=== PATIENT | female | born 1995 | race Caucasian/White ===

== ENCOUNTER 2018-04-22 23:23 | Outpatient (CLI) | payer MEDICAID ==
[~2018-04-22] VITALS: Ht 144.8 cm; Wt 91.6 kg
--- NOTE | 2018-04-22 23:12 | NUR ---
FIORELLA GEORGE presented to unit via ems stretcher from ED, accompanied by [facility] ems staff, with c/o CONTRACTIONS. FIORELLA GEORGE gowned, voided, and to bed. EFHM and TOCO applied, VS taken. FIORELLA GEORGE oriented to bed controls, call light, TV, heat, and A/C controls. Assessments to follow per JACKSON HEWITT.
[2018-04-22 23:20] VITALS: BP 130/59
[~2018-04-22 23:23] MED LIST: FAMO20TA3 PO; FAMO20TA5 PO; FERR-84 PO; PREN1TAB86 PO
[2018-04-22] MEDS ORDERED: MAGN400T50 PO (23:34)
[2018-04-22 23:38] LABS: BILIRUBIN,URINE NEGATIVE (NEGATIVE); CLARITY,URINE CLEAR; COLOR,URINE YELLOW; GLUCOSE, URINE (UA) NEGATIVE (NEGATIVE); KETONES,URINE NEGATIVE (NEGATIVE); LEUKOCYTE ESTERASE ,URINE 2+ (NEGATIVE); NITRITE,URINE NEGATIVE (NEGATIVE); PH,URINE 8 (5-9); PROTEIN,URINE NEGATIVE (NEGATIVE); UROBILINOGEN,URINE NORMAL (NORMAL)
--- NOTE | 2018-04-22 23:51 | NUR ---
s.o. here at bedside.
[2018-04-22 23:55] LABS: BACTERIA,URINE TRACE /HPF; WBC,URINE 0-2 /HPF
--- NOTE | 2018-04-23 01:38 | NUR ---
Pt ambulated off unit with s.o. to private auto.
--- NOTE | 2018-04-24 13:30 | Physician Query-Final Dx ---
FLAVIO SANTIAGO 04/24/18 1330: Clinic Account Progress/Dx Physician Query: Please give diagnosis Date of Service Apr 22, 2018 at 23:23 REBECCA MCKEON MD 04/24/187: Clinic Account Progress/Dx DIAGNOSIS: Diagnosis Contractions without active labor 37 weeks gestation FLAVIO SANTIAGO Apr 24, 2018 13:30 REBECCA MCKEON MD Apr 24, 2018 21:27
== END 2018-04-23 01:38 | disposition home or self-care (01) ==
LOC: WSo 23:23 → LDRP 23:25 → WSo 04-23 01:38
PROVIDERS: ATTEND Family Medicine
DX: O47.1 False labor at or after 37 completed weeks of gestation (principal); Z3A.37 37 weeks gestation of pregnancy
CPT/HCPCS: 81000; 99213

== ENCOUNTER 2018-04-26 19:09 | Inpatient (IN) | payer MEDICAID ==
[~2018-04-26] VITALS: Ht 144.8 cm; Wt 90.7 kg
[~2018-04-26 19:09] MED LIST changes: +MAGN400T50 PO
--- NOTE | 2018-04-26 19:15 | NUR ---
FIORELLA GEORGE presented to unit via W/C from ED, accompanied by SO, with c/o CONTRACTIONS. FIORELLA GEORGE weighed, gowned, voided, and to bed. EFHM and TOCO applied, VS taken. FIORELLA GEORGE oriented to bed controls, call light, TV, heat, and A/C controls.
[2018-04-26 19:25] VITALS: BP 109/6
[2018-04-26 19:58] LABS: BILIRUBIN,URINE NEGATIVE (NEGATIVE); CLARITY,URINE CLEAR; COLOR,URINE YELLOW; GLUCOSE, URINE (UA) NEGATIVE (NEGATIVE); KETONES,URINE NEGATIVE (NEGATIVE); LEUKOCYTE ESTERASE ,URINE NEGATIVE (NEGATIVE); NITRITE,URINE NEGATIVE (NEGATIVE); PH,URINE 7 (5-9); PROTEIN,URINE NEGATIVE (NEGATIVE); UROBILINOGEN,URINE NORMAL (NORMAL)
[2018-04-26 20:17] LABS: BACTERIA,URINE TRACE /HPF; SQUAMOUS EPITHELIAL CELL,UR 0-2 /HPF
[2018-04-26 21:06] LABS: BASOPHILS % (AUTO) 0 % (0-10); EOSINOPHILS # (AUTO) 0.1 10^3/uL (0.0-0.3); EOSINOPHILS % (AUTO) 1 % (0-10); HEMATOCRIT 36 % (35-52); HEMOGLOBIN 11.8 G/DL (11.5-16.0); LYMPHOCYTES # (AUTO) 1.8 X 10^3 (1.0-4.0); LYMPHOCYTES % (AUTO) 16 % (12-44); MEAN CORPUSCULAR HEMOGLOBIN 28 PG (25-34); MEAN CORPUSCULAR HGB CONC 33 G/DL (32-36); MEAN CORPUSCULAR VOLUME 84 FL (80-99); MEAN PLATELET VOLUME 9.2 FL (7.4-10.4); MONOCYTES # (AUTO) 0.6 X 10^3 (0.0-1.0); MONOCYTES % (AUTO) 6 % (0-12); NEUTROPHILS # (AUTO) 8.9 X 10^3 (1.8-7.8); NEUTROPHILS % (AUTO) 78 % (42-75); PLATELET COUNT 344 10^3/uL (130-400); RED CELL DISTRIBUTION WIDTH 13.6 % (10.0-14.5); WHITE BLOOD COUNT 11.4 10^3/uL (4.3-11.0)
[2018-04-26 23:30] VITALS: BP 112/59
[2018-04-27] VITALS (18 sets, daily range): BP systolic 104–132; BP diastolic 46–73
[2018-04-27] MEDS ORDERED: D5 LR IV SOLUTION 1,000 ML IV SCH (09:14)
[2018-04-27] MEDS ORDERED: LIDOCAINE/EPI 2% 1:200,00 (XYLOCAINE) 10 ML VIAL ONE (09:15)
[2018-04-27] MEDS ORDERED: OXYTOCIN/NORMAL SALINE 500 ML IV ONE (09:15)
[2018-04-27] MEDS ORDERED: MINERAL OIL CONCENTRATE 99.9% 15 ML UDC ONE (09:15)
[2018-04-27] MEDS ORDERED: D5 LR IV SOLUTION 1,000 ML IV ONE (09:15)
--- NOTE | 2018-04-27 09:20 | History & Physical-OB ---
OB - Chief Complaint & HPI Date/Time Date of Admission: Date of Admission: 04/27/18 Date seen by a Provider: Apr 27, 2018 Time Seen by a Provider: 09:14 Chief Complaint/History OB-Reason for Admission/Chief: Onset of Labor Hx : 4 Hx Para: 3 Expected Date of Delivery: May 09, 2018 Gestational Age in Weeks: 38 Gestational Age in Days: 2 Other reason for admission: Pt has been having contractions intermittently for the past 1-2 days. At times intensity and frequency increases significantly. Was seen by Dr. Kay in the office Thurs and found to be 5cm dilated. Pt presents to L&D at this time with increase frequency and intensity of contractions. Contractions have spaced out over night and pt is currently 5cm/80%/-1 head well engaged. Admission Nurse Assessment Rev: Yes History of Labs A+, antibody screen neg HIV, HepB/C, RPR neg Rubella/Varicella Immune GC/Chl neg/neg QNatal normal; female GBS neg Allergies and Home Medications Allergies Coded Allergies: ibuprofen (Verified Allergy, Severe, ANAPHYLAXIS, 04/22/18) PT STATES MOM TOLD HER IT MADE HER MOUTH SWELL AT AGE 6 Latex, Natural Rubber (Verified Allergy, Unknown, 04/22/18) latex (Verified Allergy, Unknown, 04/22/18) Home Medications Ferrous Sulfate 325 Mg Tablet, 325 MG PO DAILY, (Reported) Magnesium Oxide 400 Mg Tablet, 400 MG PO DAILY, (Reported) Vit W-Ca,Fe,FA(<1 mg) 1 Each Tablet, 1 EACH PO DAILY, (Reported) Patient Home Medication List Home Medication List Reviewed: Yes OB - History Hx of Present Care: Yes Ultrasounds: Normal mid trimester US Obstetrical Complications: None Medical Complications: None Information Induced Hypertension: No Maternal Gestational Diabetes: No Hemorrhage: No Obstetrical History Hx : 4 Hx Para: 3 Hx Termination: No Hx Multiple Gestation: No Hx Ectopic : No Hx Stillbirth: No Hx Complication: No Hx Induced Hypertens: No Hx Maternal Gestational Diabet: No Hx Hemorrhage: No Delivery History Hx Dystocia: No Hx Forceps Assisted Delivery: No Hx Vacuum Extraction Assisted: No Hx Placenta Abnormality: No Hx Distress: No Hx Large For Gestational Age I: No Hx Small for Gestational Age I: No Hx Section: No Hx Vaginal Delivery Post C-Sec: No Hx Blood Disorders: No Adverse Rxn to Tranfusion: No Patient Past Medical History PMHx: Kidney stones depression/anxiety Asthma - does not require tx Social History/Family History HIV/AIDS: No Recent Infectious Disease Expo: No Sexually Transmitted Disease: No Alcohol Use: Denies Use Recreational Drug Use: No Immunizations Hepatitis A: Yes Hepatitis B: Yes Tetanus Booster (TDap): Less than 5yrs Date of Influenza Vaccine: Oct 30, 2017 Rubella: immune RPR/VDRL: Negative GBS Status: Negative HBsAG: Negative OB - Admission Exam Physical Exam Vitals: Vital Signs 04/27/18 04:00 Temp 98.6 Pulse 120 Resp 20 B/P (MAP) 104/55 (71) O2 Delivery Room Air Abdomen: Gravid Cervical Dilatation: 5cm Effacement: Other (80%) Station: -1 Membranes: Intact Heart Rate: 150's Accelerations: Accelerations Present Decelerations: No Decelerations Short Term Variability: Present Swimming Pool Installer And Servicer Variability: Average (6-25) Contractions on Admission: 6-10 Minutes Apart Intensity: Mild Labs Laboratory Tests Test 04/26/18 19:35 04/26/18 20:40 Range/Units Urine Color YELLOW Urine Clarity CLEAR Urine pH 7 5-9 Urine Specific [place] 1.005 L 1.016-1.022 Urine Protein NEGATIVE NEGATIVE Urine Glucose (UA) NEGATIVE NEGATIVE Urine Ketones NEGATIVE NEGATIVE Urine Nitrite NEGATIVE NEGATIVE Urine Bilirubin NEGATIVE NEGATIVE Urine Urobilinogen NORMAL NORMAL MG/DL Urine Leukocyte Esterase NEGATIVE NEGATIVE Urine RBC (Auto) NEGATIVE NEGATIVE Urine RBC NONE /HPF Urine WBC NONE /HPF Urine Squamous Epithelial Cells 0-2 /HPF Urine Crystals NONE /LPF Urine Bacteria TRACE /HPF Urine Casts NONE /LPF Urine Mucus NEGATIVE /LPF Urine Culture Indicated NO White Blood Count 11.4 H 4.3-11.0 10^3/uL Red Blood Count 4.26 L 4.35-5.85 10^6/uL Hemoglobin 11.8 11.5-16.0 G/DL Hematocrit 36 35-52 % Mean Corpuscular Volume 84 80-99 FL Mean Corpuscular Hemoglobin 28 25-34 PG Mean Corpuscular Hemoglobin Concent 33 32-36 G/DL Red Cell Distribution Width 13.6 10.0-14.5 % Platelet Count 344 130-400 10^3/uL Mean Platelet Volume 9.2 7.4-10.4 FL Neutrophils (%) (Auto) 78 H 42-75 % Lymphocytes (%) (Auto) 16 12-44 % Monocytes (%) (Auto) 6 0-12 % Eosinophils (%) (Auto) 1 0-10 % Basophils (%) (Auto) 0 0-10 % Neutrophils # (Auto) 8.9 H 1.8-7.8 X 10^3 Lymphocytes # (Auto) 1.8 1.0-4.0 X 10^3 Monocytes # (Auto) 0.6 0.0-1.0 X 10^3 Eosinophils # (Auto) 0.1 0.0-0.3 10^3/uL Basophils # (Auto) 0.0 0.0-0.1 10^3/uL OB - Assessment/Plan/Diagnosis Assessment Assessment: other Admission Dx at 38w2d Prolonged latent phase of labor with advanced cervical dilation and history of rapid delivery Admission Status: Inpatient Order (span 2 midnights) Reason for Inpatient Admission: labor and delivery Plan Plan: Other (Augmentation with AROM) Induction Method: AROM Copy Copies To 1: REBECCA KAY MD, LINDA K DO Apr 27, 2018 09:20
[2018-04-27] MEDS ORDERED: OXYTOCIN/NORMAL SALINE 500 ML IV SCH ×2 (10:28→15:20)
[2018-04-27] MEDS ORDERED: LIDOCAINE/EPI 2% 1:200,00 (XYLOCAINE) 10 ML VIAL INJ ONE (10:30)
[2018-04-27] MEDS ORDERED: MINERAL OIL CONCENTRATE 99.9% 15 ML UDC PO ONE (10:30)
--- NOTE | 2018-04-27 13:55 | OB Labor & Delivery Record ---
Vag Delivery Note Vag Delivery Note Date of Delivery: 04/27/18 Preoperative Diagnosis: Yris Rose is a (22 /Para 4 / 3,Gestational Age (wks)382d Postoperative Diagnosis: Same Surgeon: KALE JANG Vacuum Filter Operator: [] Anesthesia: none Delivery Type: spontaneous vaginal Findings: Viable female , apgars 8/9, weight 6#7 Lacerations: none Intact placenta with 3 vessel cord. No nuchal cord, body cord or shoulder dystocia Estimated Blood Loss: 100 ml Complications: None Condition: Stable Description of Procedure: The patient is a 22 year old female who presented with contractions and was 5 cm dilated. She was admitted and informed consent was obtained. Her labor course was remarkable for augmentation with AROM and pitocin. She progressed to complete dilatation and began to push. She was then set up for delivery. The 's head was delivered atraumatically in the MINI position. The shoulders and remainder of the infant's body were then delivered without difficulty. Upon delivery, the head was held below the level of the perineum and the mouth and nares were bulb suctioned. The was placed on the maternal abdomen and was vigorous at . The cord was doubly clamped and cut after there was cessation of pulsations. An intact placenta with 3-vessel cord delivered via Leah and there was found to be minimal bleeding.~100mL. Vigorous fundal massage was performed and the fundus was found to be firm. IV oxytocin was given. Examination of the vagina and perineum revealed no lacerations. Following the repair, sponge, instrument and needle counts were correct. Mom and baby were both in stable condition in the labor suite. Vitals - Labs Vital Signs - I&O Vital Signs Date Time Temp Pulse Resp B/P (MAP) Pulse Ox O2 Delivery O2 Flow Rate FiO2 04/27/18 04:00 98.6 120 20 104/55 (71) Room Air 04/26/18 23:30 98.4 116 20 112/59 (76) Room Air 04/26/18 19:25 98.5 112 20 109/6 (40) Room Air Labs Laboratory Tests 04/26/18 19:35: Urine Color YELLOW, Urine Clarity CLEAR, Urine pH 7, Urine Specific [place] 1.005L, Urine Protein NEGATIVE, Urine Glucose (UA) NEGATIVE, Urine Ketones NEGATIVE, Urine Nitrite NEGATIVE, Urine Bilirubin NEGATIVE, Urine Urobilinogen NORMAL, Urine Leukocyte Esterase NEGATIVE, Urine RBC (Auto) NEGATIVE, Urine RBC NONE, Urine WBC NONE, Urine Squamous Epithelial Cells 0-2, Urine Crystals NONE, Urine Bacteria TRACE, Urine Casts NONE, Urine Mucus NEGATIVE, Urine Culture Indicated NO 04/26/18 20:40: White Blood Count 11.4H, Red Blood Count 4.26L, Hemoglobin 11.8, Hematocrit 36, Mean Corpuscular Volume 84, Mean Corpuscular Hemoglobin 28, Mean Corpuscular Hemoglobin Concent 33, Red Cell Distribution Width 13.6, Platelet Count 344, Mean Platelet Volume 9.2, Neutrophils (%) (Auto) 78H, Lymphocytes (%) (Auto) 16 , Monocytes (%) (Auto) 6, Eosinophils (%) (Auto) 1, Basophils (%) (Auto) 0, Neutrophils # (Auto) 8.9H, Lymphocytes # (Auto) 1.8, Monocytes # (Auto) 0.6, Eosinophils # (Auto) 0.1, Basophils # (Auto) 0.0 KALE JANG DO Apr 27, 2018 13:55
[2018-04-27] MEDS ORDERED: CATHETER FLUSH 10 ML SYR IV SCH ×2 (14:00→22:00)
[2018-04-27] MEDS ORDERED: ACETAMINOPHEN 500 MG TAB (TYLENOL) ONE (14:02)
[2018-04-27] MEDS: ACETAMINOPHEN 325 MG TABLET PO PRN ×2 (14:04→22:29)
--- NOTE | 2018-04-27 14:30 | NUR ---
2ND BAG PITOCIN STARTED PER ORDER, FFU/2 LT/MOD LOCHIA NOTED, IN MOTHERS ARMS.
[2018-04-27] MEDS ORDERED: WITCH HAZEL(TUCKS) 40 EA JAR TOP PRN (15:30)
[2018-04-27] MEDS ORDERED: BENZOCAINE/MENTHOL (DERMOPLAST) 56 ML CAN TP PRN (15:30)
--- NOTE | 2018-04-27 16:00 | NUR ---
PT AMBULATED TO BR WITH RN ASSISTANCE, VOIDED WITHOUT DIFFICULTY, PERICARE COMPLETED, TRANSFERRED BY WC TO PP ROOM FOR CONTINUED PP CARE, EXPLAINED PLAN OF CARE NO QUESTIONS OR CONCERN NOTED, AND S/O AT BEDSIDE, INFO PAPERS EXPLAINED TO PT/SO, PT VERBALIZES UNDERSTANDING
[2018-04-27] MEDS ORDERED: PHENAZOPYRIDINE 100 MG (PYRIDIUM) TABLET PO ONE (18:45)
--- NOTE | 2018-04-27 20:17 | NUR ---
Infant returned to mother and mother educated on feed on demand. Mother also advised to fill out feeding record. mother receptive to teaching.
[2018-04-28] VITALS: BP 100/62
[2018-04-28 04:43] VITALS: BP 99/60
[2018-04-28 05:48] LABS: BASOPHILS % (AUTO) 0 % (0-10); EOSINOPHILS % (AUTO) 0 % (0-10); HEMATOCRIT 31 % (35-52); HEMOGLOBIN 10.1 G/DL (11.5-16.0); LYMPHOCYTES # (AUTO) 1.1 X 10^3 (1.0-4.0); LYMPHOCYTES % (AUTO) 14 % (12-44); MEAN CORPUSCULAR HEMOGLOBIN 28 PG (25-34); MEAN CORPUSCULAR HGB CONC 33 G/DL (32-36); MEAN CORPUSCULAR VOLUME 85 FL (80-99); MEAN PLATELET VOLUME 9.2 FL (7.4-10.4); MONOCYTES # (AUTO) 0.9 X 10^3 (0.0-1.0); MONOCYTES % (AUTO) 12 % (0-12); NEUTROPHILS % (AUTO) 74 % (42-75); PLATELET COUNT 265 10^3/uL (130-400); RED CELL DISTRIBUTION WIDTH 13.5 % (10.0-14.5); WHITE BLOOD COUNT 8.1 10^3/uL (4.3-11.0)
[2018-04-28] MEDS ORDERED: PRENATAL VITAMIN 1 EA TAB PO SCH (07:00)
[2018-04-28 08:52] VITALS: BP 112/68
[2018-04-28] MEDS: ACETAMINOPHEN 325 MG TABLET PO PRN (08:54)
[2018-04-28] MEDS ORDERED: ACET325T49 PO (09:13)
--- NOTE | 2018-04-28 09:15 | Discharge Instructions ---
Discharge Inst-Women's Serv Depart Medications New, Converted or Re-Newed RX: Other (over the counter) New Medications: Acetaminophen (Acetaminophen) 325 Mg Tablet 650 MG PO Q4H PRN for PAIN-MILD, #90 TAB 0 Refills Continued Medications: Vit W-Ca,Fe,FA(<1 mg) ( Vitamins) 1 Each Tablet 1 EACH PO DAILY, TAB Discontinued Medications: Ferrous Sulfate (Iron) 325 Mg Tablet 325 MG PO DAILY, TAB Magnesium Oxide (Magnesium Oxide) 400 Mg Tablet 400 MG PO DAILY, TAB Follow Up/Instructions Goal/Follow Up: Follow-up with Dr. Kay in 6wk Activity Activity: Activity as Tolerated Nothing Inside Vagina: No Douching, No [place], No Tampons Diet Discharge Diet: No Restrictions Symptoms to Report to : Bleeding Excessive, Pain Increased, Fever Over 101 Degrees F, Vaginal Bleeding Increase, Vaginal Discharge Foul, Questions/Concerns , Shortness of Breath For Any Problems or Questions: Contact Your Physician KALE JANG DO Apr 28, 2018 09:15
--- NOTE | 2018-04-28 09:19 | Discharge Summary ---
Diagnosis/Chief Complaint Date of Admission Apr 27, 2018 at 09:14 Date of Discharge Apr 28, 2018 Admission Diagnosis Admission Diagnosis at 38w2d Prolonged latent phase of labor with advanced cervical dilation and history of rapid delivery Discharge Diagnosis at 38w2d s/p on 04/27/18 Discharge Summary-OBS Procedures None. Discharge Physical Examination Allergies: Coded Allergies: ibuprofen (Verified Allergy, Severe, ANAPHYLAXIS, 04/22/18) PT STATES MOM TOLD HER IT MADE HER MOUTH SWELL AT AGE 6 Latex, Natural Rubber (Verified Allergy, Unknown, 04/22/18) latex (Verified Allergy, Unknown, 04/22/18) Vitals & I&Os Intake and Output 04/28/18 00:00 Intake Total 500 ml Balance 500 ml Vital Sign - Last 12Hours Date Time Temp Pulse Resp B/P (MAP) Pulse Ox O2 Delivery O2 Flow Rate FiO2 04/28/18 08:52 99.0 107 18 112/68 (83) 97 Room Air General Appearance: Alert, Oriented X3, Cooperative Psych/Mental Status: Mood NL Hospital Course Routine course. Labs Laboratory Tests 04/28/18 05:38: White Blood Count 8.1, Red Blood Count 3.62L, Hemoglobin 10.1L, Hematocrit 31L, Mean Corpuscular Volume 85, Mean Corpuscular Hemoglobin 28, Mean Corpuscular Hemoglobin Concent 33, Red Cell Distribution Width 13.5, Platelet Count 265, Mean Platelet Volume 9.2, Neutrophils (%) (Auto) 74, Lymphocytes (%) (Auto) 14, Monocytes (%) (Auto) 12, Eosinophils (%) (Auto) 0, Basophils (%) (Auto) 0, Neutrophils # (Auto) 6.0, Lymphocytes # (Auto) 1.1, Monocytes # (Auto) 0.9, Eosinophils # (Auto) 0.0, Basophils # (Auto) 0.0 Discharge Instructions to patient/family Please see electronic discharge instructions given to patient. Discharge Medications Reviewed and agree with Discharge Medication list on patient's Discharge Instruction sheet Clinical Quality Measures DVT/VTE Risk/Contraindication: Risk Factor Score Per Nursin RFS Level Per Nursing on Admit: 1=Low/No VTE PPX KALE JANG DO Apr 28, 2018 09:19
--- NOTE | 2018-04-28 09:20 | NUR ---
Dr Bobby to room to see pt.
--- NOTE | 2018-04-28 11:00 | NUR ---
Pt S.O. reports trying to find transportation upon pending discharge as their planned ride has become ill. sheet metal supervisor called and inquired about resources - both taxi services and gas cards available. Information relayed to pt.
--- NOTE | 2018-04-28 15:25 | NUR ---
Discharge instructions explained to pt with copy provided to pt. Pt notified of script available at [facility] in [place], breast pump script provided. Pt verbalizes understanding of teaching, signs to verify. Gas card provided per S.O. request. No further needs or concerns voiced at this time.
--- NOTE | 2018-04-28 15:50 | NUR ---
Pt taken off unit via wheelchair accompanied by Luciana RN and . To private vehicle. All persoal belongings with pt. No s/s of distress noted.
== END 2018-04-28 15:50 | disposition home or self-care (01) | DRG 807 ==
LOC: WSo 19:09 → LDRP 19:09 → WSo 04-27 09:14 → LDRP 04-27 09:14
PROVIDERS: ADMIT Family Medicine; ATTEND Family Medicine
PROC: 10E0XZZ Delivery of Products of Conception, External Approach (ICD-10-PCS; principal; 2018-04-27)
DX: O62.0 Primary inadequate contractions (principal); Z3A.38 38 weeks gestation of pregnancy; Z37.0 Single live birth
CPT/HCPCS: 36415; 81000; 85025; 86850; 86900; 86901; 99212

== ENCOUNTER 2020-04-30 11:26 | Outpatient (CLI) | payer MEDICAID ==
[~2020-04-30] VITALS: Ht 63 cm; Wt 100.2 kg
[~2020-04-30 11:26] MED LIST changes: +ACET325T49 PO
[2020-04-30 12:16] VITALS: BP 109/64
[2020-04-30 12:20] VITALS: BP 109/64
[2020-04-30 13:00] VITALS: BP 109/64
--- NOTE | 2020-05-03 08:19 | Physician Query-Final Dx ---
CHARISSE WOODARD 05/03/20 0819: Clinic Account Progress/Dx Physician Query: Please give diagnosis Please include # weeks gestation Date of Service Apr 30, 2020 at 11:26 REBECCA MCKEON MD 05/03/20 1242: Clinic Account Progress/Dx DIAGNOSIS: Diagnosis Leaking fluid Third trimester 37 weeks gestation CHARISSE WOODARD May 03, 2020 08:19 REBECCA MCKEON MD May 03, 2020 12:42
== END 2020-04-30 13:05 | disposition home or self-care (01) ==
LOC: WSo 11:26 → LDRP 11:27 → WSo 13:05
PROVIDERS: ATTEND Family Medicine
DX: O42.92 Full-term premature rupture of membranes, unspecified as to length of time between rupture and onset of labor (principal); Z3A.37 37 weeks gestation of pregnancy
CPT/HCPCS: 99214

== ENCOUNTER 2020-05-10 05:45 | Inpatient (IN) | payer MEDICAID ==
[~2020-05-10] VITALS: Ht 146 cm; Wt 102.0 kg
[2020-05-10] VITALS (21 sets, daily range): BP systolic 103–139; BP diastolic 55–80
[2020-05-10] MEDS ORDERED: CATHETER FLUSH 10 ML SYR IV SCH ×2 (06:00→14:30)
[2020-05-10] MEDS ORDERED: D5 LR IV SOLUTION 1,000 ML IV SCH (06:00)
[2020-05-10] MEDS ORDERED: MINERAL OIL CONCENTRATE 99.9% 15 ML UDC TOP PRN (06:00)
[2020-05-10 07:47] LABS: BASOPHILS % (AUTO) 0 % (0-10); EOSINOPHILS # (AUTO) 0.1 10^3/uL (0.0-0.3); EOSINOPHILS % (AUTO) 1 % (0-10); HEMATOCRIT 35 % (35-52); HEMOGLOBIN 11.1 g/dL (11.5-16.0); LYMPHOCYTES # (AUTO) 2.1 10^3/uL (1.0-4.0); LYMPHOCYTES % (AUTO) 23 % (12-44); MEAN CORPUSCULAR HEMOGLOBIN 27 pg (25-34); MEAN CORPUSCULAR HGB CONC 32 g/dL (32-36); MEAN CORPUSCULAR VOLUME 85 fL (80-99); MEAN PLATELET VOLUME 9.9 fL (9.0-12.2); MONOCYTES # (AUTO) 0.5 10^3/uL (0.0-1.0); MONOCYTES % (AUTO) 6 % (0-12); NEUTROPHILS # (AUTO) 6.2 10^3/uL (1.8-7.8); NEUTROPHILS % (AUTO) 69 % (42-75); PLATELET COUNT 291 10^3/uL (130-400); WHITE BLOOD COUNT 8.9 10^3/uL (4.3-11.0)
[2020-05-10] MEDS ORDERED: FERR-84 PO (08:00)
--- NOTE | 2020-05-10 08:45 | History & Physical-OB ---
OB - Chief Complaint & HPI Date/Time Date of Admission: Date of Admission: May 10, 2020 at 5:45 am Date seen by a Provider: May 10, 2020 Time Seen by a Provider: 08:40 Chief Complaint/History OB-Reason for Admission/Chief: Induction of Labor Hx : 5 Hx Para: 4 Expected Date of Delivery: May 15, 2020 Gestational Age in Weeks: 39 Gestational Age in Days: 2 Indication for induction: maternal discomfort History of Labs A+, antibody neg, RNI. HIV/HepB/RPR NR. GC/chlamydia neg. GBS neg. Allergies and Home Medications Allergies Coded Allergies: ibuprofen (Verified Allergy, Severe, ANAPHYLAXIS, 04/22/18) PT STATES MOM TOLD HER IT MADE HER MOUTH SWELL AT AGE 6 Latex, Natural Rubber (Verified Allergy, Unknown, 04/22/18) latex (Verified Allergy, Unknown, 04/22/18) Home Medications Acetaminophen 325 Mg Tablet, 650 MG PO Q4H PRN for PAIN-MILD Prescribed by: KALE JANG on 04/28/18 0913 Ferrous Sulfate 325 Mg Tablet, 325 MG PO DAILY, (Reported) Vit W-Ca,Fe,FA(<1 mg) 1 Each Tablet, 1 EACH PO DAILY, (Reported) Patient Home Medication List Home Medication List Reviewed: Yes OB - History Hx of Present Care: Yes Ultrasounds: Normal mid trimester US Obstetrical Complications: None Medical Complications: None Information Induced Hypertension: No Maternal Gestational Diabetes: No Hemorrhage: No Obstetrical History Hx : 5 Hx Para: 4 Hx # Term Pregnancies: 4 Hx # Pregnancies: 0 Number of Living Children: 4 Hx Termination: No Hx Multiple Gestation: No Hx Ectopic : No Hx Stillbirth: No Hx Complication: No Hx Induced Hypertens: No Hx Maternal Gestational Diabet: No Hx Hemorrhage: No Delivery History Hx Dystocia: No Hx Forceps Assisted Delivery: No Hx Vacuum Extraction Assisted: No Hx Placenta Abnormality: No Hx Distress: No Hx Large For Gestational Age I: No Hx Small for Gestational Age I: No Hx Section: No Hx Vaginal Delivery Post C-Sec: No Hx Blood Disorders: No Adverse Rxn to Tranfusion: No Patient Past Medical History PMHx: Kidney stones depression/anxiety Asthma - does not require tx Social History/Family History Alcohol Use: Denies Use Recreational Drug Use: No Smoking Cessation: Never smoker 2nd Hand Smoke Exposure: No Immunizations Hepatitis A: Yes Hepatitis B: Yes Tetanus Booster (TDap): Less than 5yrs Date of Influenza Vaccine: Dec 12, 2019 Rubella: not immune RPR/VDRL: Negative GBS Status: Negative HBsAG: Negative OB - Admission Exam Physical Exam Vitals: Vital Signs 05/10/20 07:25 Temp 36.7 Pulse 91 Resp 18 Pulse Ox 99 O2 Delivery Room Air HEENT: NCAT Abdomen: Non tender Extremities: Edema (trace) Cervical Dilatation: 5cm Effacement: 50% Station: -3 Membranes: Ruptured (AROM at time of exam) Amniotic Fluid: Clear Heart Rate: 140's Accelerations: Accelerations Present Decelerations: No Decelerations Short Term Variability: Present Drop Wirer Variability: Average (6-25) Contractions on Admission: None Spencer Scoring Tool (Modified) Dilation (cm): >5cm (3) Effacement (%): 31-51% (1) Descent/Station: -3 (0) Cervix Consistency: Soft (2) Cervix Position: Anterior (2) Add 1 point for: Each previous vaginal delivery (1) (4) Spencer Score: 12 Labs Laboratory Tests Test 05/10/20 07:36 Range/Units White Blood Count 8.9 4.3-11.0 10^3/uL Red Blood Count 4.09 3.80-5.11 10^6/uL Hemoglobin 11.1 L 11.5-16.0 g/dL Hematocrit 35 35-52 % Mean Corpuscular Volume 85 80-99 fL Mean Corpuscular Hemoglobin 27 25-34 pg Mean Corpuscular Hemoglobin Concent 32 32-36 g/dL Red Cell Distribution Width 13.9 10.0-14.5 % Platelet Count 291 130-400 10^3/uL Mean Platelet Volume 9.9 9.0-12.2 fL Immature Granulocyte % (Auto) 0 % Neutrophils (%) (Auto) 69 42-75 % Lymphocytes (%) (Auto) 23 12-44 % Monocytes (%) (Auto) 6 0-12 % Eosinophils (%) (Auto) 1 0-10 % Basophils (%) (Auto) 0 0-10 % Neutrophils # (Auto) 6.2 1.8-7.8 10^3/uL Lymphocytes # (Auto) 2.1 1.0-4.0 10^3/uL Monocytes # (Auto) 0.5 0.0-1.0 10^3/uL Eosinophils # (Auto) 0.1 0.0-0.3 10^3/uL Basophils # (Auto) 0.0 0.0-0.1 10^3/uL Immature Granulocyte # (Auto) 0.0 0.0-0.1 10^3/uL OB - Assessment/Plan/Diagnosis Assessment Assessment: induction of labor Admission Dx Term intrauterine at 39 weeks Rubella non-immune Blood type A+ GBS negative Induction of labor Admission Status: Inpatient Order (span 2 midnights) Reason for Inpatient Admission: Labor, delivery and course Plan Plan: Induction Induction Method: REBECCA ARZOLA MD May 10, 2020 8:45 am
[2020-05-10 10:43] LABS: BILIRUBIN,URINE NEGATIVE (NEGATIVE); CLARITY,URINE CLEAR; COLOR,URINE YELLOW; GLUCOSE, URINE (UA) NEGATIVE (NEGATIVE); KETONES,URINE NEGATIVE (NEGATIVE); LEUKOCYTE ESTERASE ,URINE TRACE (NEGATIVE); NITRITE,URINE NEGATIVE (NEGATIVE); PROTEIN,URINE NEGATIVE (NEGATIVE)
[2020-05-10 10:57] LABS: BACTERIA,URINE TRACE /HPF
[2020-05-10] MEDS ORDERED: OXYTOCIN PRE-MIX DRIP 500 ML IV ONE (11:32)
[2020-05-10] MEDS ORDERED: OXYTOCIN PRE-MIX DRIP 500 ML IV SCH ×2 (11:45→14:30)
--- NOTE | 2020-05-10 13:45 | OB Labor & Delivery Record ---
CYDNEY CARDENAS,MED STUDENT 05/10/20 1345: Vag Delivery Note Vag Delivery Note Date of Delivery: 05/10/20 Preoperative Diagnosis: Yris Rose is a (24 /Para 5 / 4,Gestational Age (39 weeks 2 days] Postoperative Diagnosis: Same Surgeon: Rebecca Mckeon MD Hot Mill Worker: Cydney Cardenas MS4 Anesthesia: None Delivery Type: Vaginal Findings: Viable female infant, apgars 9/9, weight 7 pounds 4 ounces (3289 grams) Lacerations: Left periurethral abrasion Intact placenta with 3 vessel cord. No nuchal cord, body cord or shoulder dystocia Estimated Blood Loss: 200 ml Complications: None Condition: Stable Description of Procedure: The patient is a 24 year old female who presented for induction of labor. She was admitted and informed consent was obtained. Her labor course was unremarkable. She progressed to complete dilatation and began to push. She was then set up for delivery. The infant's head was delivered atraumatically in the OA position. The shoulders and remainder of the 's body were then delivered without difficulty. Upon delivery, infant was vigorous and placed on maternal abdomen. After 1 minute delay the cord was doubly clamped and cut and the was handed off to the pediatric staff. An intact placenta with 3- vessel cord delivered via Leah and there was found to be minimal bleeding. Vigorous fundal massage was performed and the fundus was found to be firm. IV oxytocin was given. Examination of the vagina and perineum revealed a left periurethral abrasion that required no repair. Sponge, instrument and needle counts were correct. Mom and baby were both in stable condition in the labor suite. Vitals - Labs Vital Signs - I&O Vital Signs Date Time Temp Pulse Resp B/P (MAP) Pulse Ox O2 Delivery O2 Flow Rate FiO2 05/10/20 12:30 74 18 120/76 (91) Room Air 05/10/20 12:15 85 18 122/72 (89) Room Air 05/10/20 12:00 18 Room Air 05/10/20 11:45 96 18 127/77 (94) Room Air 05/10/20 11:30 78 18 104/61 (75) Room Air 05/10/20 11:00 65 18 117/78 (91) Room Air 05/10/20 10:30 81 18 116/67 (83) Room Air 05/10/20 10:00 36.4 73 18 125/71 (89) Room Air 05/10/20 09:30 18 Room Air 05/10/20 09:00 18 Room Air 05/10/20 08:30 80 18 114/59 (77) Room Air 05/10/20 07:25 36.7 91 18 99 Room Air Labs Laboratory Tests 05/10/20 06:00: Urine Color YELLOW, Urine Clarity CLEAR, Urine pH 7.0, Urine Specific [place] <=1.005, Urine Protein NEGATIVE, Urine Glucose (UA) NEGATIVE, Urine Ketones NEGATIVE, Urine Nitrite NEGATIVE, Urine Bilirubin NEGATIVE, Urine Urobilinogen 0.2, Urine Leukocyte Esterase TRACEH, Urine RBC (Auto) TRACE-L, Urine RBC NONE, Urine WBC 2-5, Urine Squamous Epithelial Cells 10-25H, Urine Crystals NONE, Urine Bacteria TRACE, Urine Casts NONE, Urine Mucus NEGATIVE, Urine Culture Indicated NO 05/10/20 07:36: White Blood Count 8.9, Red Blood Count 4.09, Hemoglobin 11.1L, Hematocrit 35, Mean Corpuscular Volume 85, Mean Corpuscular Hemoglobin 27, Mean Corpuscular Hemoglobin Concent 32, Red Cell Distribution Width 13.9, Platelet Count 291, Mean Platelet Volume 9.9, Immature Granulocyte % (Auto) 0, Neutrophils (%) (Au to) 69, Lymphocytes (%) (Auto) 23, Monocytes (%) (Auto) 6, Eosinophils (%) (Auto) 1, Basophils (%) (Auto) 0, Neutrophils # (Auto) 6.2, Lymphocytes # (Auto) 2.1, Monocytes # (Auto) 0.5, Eosinophils # (Auto) 0.1, Basophils # (Auto) 0.0, Immature Granulocyte # (Auto) 0.0 REBECCA MCKEON MD 05/10/20 1350: Vag Delivery Note Vag Delivery Note I was present and performed entire procedure with VERENICE Lawrence assisting. Agree with documentation. CYDNEY CARDENAS,MED STUDENT May 10, 2020 13:45 REBECCA MCKEON MD May 10, 2020 13:50
[2020-05-10] MEDS ORDERED: BENZOCAINE/MENTHOL (DERMOPLAST) 60 ML CAN TP PRN (14:30)
[2020-05-10] MEDS ORDERED: WITCH HAZEL(TUCKS) 40 EA JAR TOP PRN (14:30)
[2020-05-10] MEDS ORDERED: MEASLES,MUMPS,RUBELLA 1 EA INJ SQ ONE (14:30)
[2020-05-10] MEDS: ACETAMINOPHEN 500 MG TAB (TYLENOL) PO PRN ×2 (15:14→22:19)
[2020-05-10] MEDS ORDERED: IBUPROFEN 600 MG (MOTRIN) TAB PO SCH (18:00)
[2020-05-10] MEDS ORDERED: CALCIUM CARBONATE 500 MG (TUMS) TAB.CHEW ONE (22:12)
[2020-05-10] MEDS ORDERED: CALCIUM CARBONATE 500 MG (TUMS) TAB.CHEW PO PRN (22:15)
[2020-05-10] MEDS: DOCUSATE SODIUM 100 MG (COLACE) CAP PO SCH (22:19)
[2020-05-11 02:00] VITALS: BP 108/65
[2020-05-11 06:00] LABS: BASOPHILS % (AUTO) 0 % (0-10); EOSINOPHILS # (AUTO) 0.1 10^3/uL (0.0-0.3); EOSINOPHILS % (AUTO) 1 % (0-10); HEMATOCRIT 34 % (35-52); HEMOGLOBIN 11.1 g/dL (11.5-16.0); LYMPHOCYTES # (AUTO) 2.7 10^3/uL (1.0-4.0); LYMPHOCYTES % (AUTO) 28 % (12-44); MEAN CORPUSCULAR HEMOGLOBIN 28 pg (25-34); MEAN CORPUSCULAR HGB CONC 33 g/dL (32-36); MEAN CORPUSCULAR VOLUME 85 fL (80-99); MEAN PLATELET VOLUME 10.1 fL (9.0-12.2); MONOCYTES # (AUTO) 0.6 10^3/uL (0.0-1.0); MONOCYTES % (AUTO) 7 % (0-12); NEUTROPHILS # (AUTO) 6.1 10^3/uL (1.8-7.8); NEUTROPHILS % (AUTO) 64 % (42-75); PLATELET COUNT 280 10^3/uL (130-400); WHITE BLOOD COUNT 9.6 10^3/uL (4.3-11.0)
[2020-05-11] MEDS: ACETAMINOPHEN 500 MG TAB (TYLENOL) PO PRN ×2 (06:01→15:01)
[2020-05-11 06:04] VITALS: BP 122/66
--- NOTE | 2020-05-11 07:28 | Discharge Summary ---
Diagnosis/Chief Complaint Date of Admission May 10, 2020 at 05:45 Date of Discharge May 11, 2020 Admission Diagnosis Admission Diagnosis 1. Intrauterine at term 39 weeks gestation Discharge Diagnosis 1. Intrauterine at term 39 weeks gestation Chief Complaint/HPI Chief Complaint/HPI 24-year-old 5 now term 5 who initially presented to labor and delivery during the morning of May 10, 2020 for induction of labor at 39 weeks 2 days gestation. Her care was essentially unremarkable and obtained through Dr. Kay at [facility]. Discharge Summary-OBS Procedures 1. Spontaneous vaginal delivery Discharge Physical Examination Allergies: Coded Allergies: ibuprofen (Verified Allergy, Severe, ANAPHYLAXIS, 04/22/18) PT STATES MOM TOLD HER IT MADE HER MOUTH SWELL AT AGE 6 Latex, Natural Rubber (Verified Allergy, Unknown, 04/22/18) latex (Verified Allergy, Unknown, 04/22/18) Vitals & I&Os Intake and Output 05/11/20 00:00 Intake Total 1100 ml Balance 1100 ml Vital Sign - Last 12Hours Date Time Temp Pulse Resp B/P (MAP) Pulse Ox O2 Delivery O2 Flow Rate FiO2 05/11/20 06:04 36.2 75 18 122/66 (84) 96 05/10/20 18:31 Room Air General Appearance: No Acute Distress Respiratory: Clear to Auscultation Cardiovascular: Regular Rate Abdominal: Soft (with uterus firm) Hospital Course Was the Problem List Reviewed?: Yes following admission patient underwent labor course. She tolerated labor without epidural. Ultimately she went on to deliver a term viable female. She was noted to have a left-sided periurethral tear but no required repair. She labor and delivery note for full details. Following delivery patient underwent routine care orders. She had no complications during the remainder of hospital stay. She had hemoglobin in the morning of May 11 that was 11.1 compared to admission hemoglobin of 11.1. She was without complaints in the morning of May 11 and felt ready for dismissal after 24-hour stay. She did not require any pain medications. She tolerated regular diet and was ambulatory. She will follow-up with Dr. Kay in 6 weeks. Labs Laboratory Tests 05/10/20 07:36: White Blood Count 8.9, Red Blood Count 4.09, Hemoglobin 11.1L, Hematocrit 35, Mean Corpuscular Volume 85, Mean Corpuscular Hemoglobin 27, Mean Corpuscular Hemoglobin Concent 32, Red Cell Distribution Width 13.9, Platelet Count 291, Mean Platelet Volume 9.9, Immature Granulocyte % (Auto) 0, Neutrophils (%) (Auto) 69, Lymphocytes (%) (Auto) 23, Monocytes (%) (Auto) 6, Eosinophils (%) (Auto) 1, Basophils (%) (Auto) 0, Neutrophils # (Auto) 6.2, Lymphocytes # (Auto) 2.1, Monocytes # (Auto) 0.5, Eosinophils # (Auto) 0.1, Basophils # (Auto) 0.0, Immature Granulocyte # (Auto) 0.0 05/11/20 05:53: White Blood Count 9.6, Red Blood Count 3.99, Hemoglobin 11.1L, Hematocrit 34L, Mean Corpuscular Volume 85, Mean Corpuscular Hemoglobin 28, Mean Corpuscular Hemoglobin Concent 33, Red Cell Distribution Width 13.8, Platelet Count 280, Mean Platelet Volume 10.1, Immature Granulocyte % (Auto) 0, Neutrophils (%) (Auto) 64, Lymphocytes (%) (Auto) 28, Monocytes (%) (Auto) 7, Eosinophils (%) (Auto) 1, Basophils (%) (Auto) 0, Neutrophils # (Auto) 6.1, Lymphocytes # (Auto) 2.7, Monocytes # (Auto) 0.6, Eosinophils # (Auto) 0.1, Basophils # (Auto) 0.0, Immature Granulocyte # (Auto) 0.0 Discharge Instructions to patient/family Please see electronic discharge instructions given to patient. Discharge Medications Reviewed and agree with Discharge Medication list on patient's Discharge Instruction sheet IKE KIDD MD May 11, 2020 07:28
--- NOTE | 2020-05-11 07:33 | Discharge Inst-Women's Service ---
Discharge Inst-Women's Serv Depart Medication/Instructions New, Converted or Re-Newed RX: Other (may have ibuprofen 200 mg tablet 2 or 3 every 6 hours if needed for cramps) Problems Reviewed?: Yes Consults/Follow Up Additional Follow Up: Yes (with Dr. Kay in 6 weeks) Activity Activity: Activity as Tolerated Driving Instructions: You May Drive Nothing Inside Vagina: No [place] (for 6 weeks) Diet Discharge Diet: Regular Diet Return to The Hospital For: as below Symptoms to Report to : Bleeding Excessive, Fever Over 101 Degrees F, Vaginal Discharge Foul For Any Problems or Questions: Contact Your Physician IKE KIDD MD May 11, 2020 07:33
[2020-05-11 08:55] VITALS: BP 108/69
[2020-05-11] MEDS: DOCUSATE SODIUM 100 MG (COLACE) CAP PO SCH (08:56)
[2020-05-11 12:00] VITALS: BP 124/59
== END 2020-05-11 16:15 | disposition home or self-care (01) | DRG 807 ==
LOC: LDRP 05:45
PROVIDERS: ADMIT Family Medicine; ATTEND Family Medicine
PROC: 10E0XZZ Delivery of Products of Conception, External Approach (ICD-10-PCS; principal; 2020-05-10)
DX: O80 Encounter for full-term uncomplicated delivery (principal); Z37.0 Single live birth; Z3A.39 39 weeks gestation of pregnancy
CPT/HCPCS: 36415; 81000; 85025; 86850; 86900; 86901; 90707